=== PATIENT | male | born 1965 | race Caucasian/White ===

== ENCOUNTER → 2017-01-29 | Outpatient (CLI) | payer OTHER ==
[~2017-01-29] MED LIST: HYDROCHLOROTHIA25 MG PO; LISINOPRIL PO
--- NOTE | ~2017-01-29 | US85 ---
[facility] A Service of [facility] & [facility] RADIOLOGY TEXT RESULTS PATIENT: ROBERT TIJERINA LOCATION: CNIV : 69 UNIT #: [id number] AGE: [address]: Ino Bhatt MD SEX: M ORDER DR: [id number] [facility] [address] [place], [place] [address] [id number] O MR#: [id number] Acc #: [id number] NAME: ROBERT TIJERINA : 1965 SEX: M STUDY DATE/TIME: 01/29/2017 9:34 UNIT: CNIV ROOM: STUDY DESCRIPTION: [facility] Attending Physician: Ino Bhatt M.D. Referring Physician: Ino Bhatt M.D. Ordering Physician: Ino Bhatt M.D. Primary Care Physician: Ino Bhatt M.D. MEDICAL IMAGING REPORT This report is preliminary unless electronic signature is present EXAM Left lower extremity venous duplex, 01/29/2017 HISTORY Left lower extremity edema for 2 months. Evaluate for deep vein thrombosis. TECHNIQUE Venous ultrasound examination of the left lower extremity was performed using grayscale, spectral Doppler and color flow Doppler imaging. FINDINGS The examination is negative. There is no evidence of left lower extremity deep venous thrombus from the groin to the lower calf. Visualized greater saphenous vein is also patent. IMPRESSION Negative examination. No evidence of left lower extremity deep venous thrombosis. Dictated by... Alex Myers M.D. THIS IS AN ELECTRONICALLY VERIFIED REPORT Alex Myers M.D. at 01/29/2017 4:58 PM МАРИНА/yareli TD: 01/29/2017 11:08 JOB #: [id number] MEDICAL IMAGING REPORT Page 1 of 1 COPY
== END | disposition home or self-care (01) ==
LOC: CNIV 09:08
DX: R60.0 Localized edema (principal)
CPT/HCPCS: 93971